=== PATIENT | male | born 1975 | race Asian ===

== ENCOUNTER 2018-10-01 09:19 | Inpatient (IN) | payer OTHER ==
[2018-10-01] MEDS ORDERED: ONDANSETRON 4 MG/2 ML VIAL IVP STA (09:41)
[2018-10-01] MEDS ORDERED: MORPHINE SULFATE 4 MG/ML SYRINGE IV STA (09:41)
[2018-10-01] MEDS ORDERED: SODIUM CHLORIDE 0.9% 1,000 ML IV STA ×2 (09:41)
[2018-10-01] MEDS ORDERED: PANTOPRAZOLE 40 MG/10 ML VIAL IVP STA (09:42)
--- NOTE | 2018-10-01 09:46 | ED ---
General Adult HPI - General Chief complaint: Nausea/Vomiting/Diarrhea Stated complaint: Vomiting blood Time Seen by Provider: 10/01/18 09:35 Source: patient, RN notes reviewed Mode of arrival: ambulatory Limitations: no limitations - History of Present Illness Initial comments: Patient's a 43-year-old male presented to the emergency room today with a chief complaint of abdominal pain with nausea vomiting diarrhea. Patient does admit that symptoms started 4 days ago with diarrhea. He states is having a proximally 5 episodes of diarrhea a day. Denies any signs of blood in the stool. Patient does admit to episodes of nausea vomiting started this morning. He states he did have 1 episode that look like there could be blood. He states he's vomited since is not seeing anything that looked like blood. Patient does admit to feeling fullness in his abdomen. He states he feels more distended. Patient currently rates pain 7/10. Does admit that the pain is cramping in nature and sharp. States it comes and goes. Patient denies any recent fever, chills, shortness of breath, chest pain, back pain, numbness or tingling, headaches or visual changes, or any other complaints. - Related Data Home Medications Medication Instructions Recorded Confirmed No Known Home Medications 10/01/18 10/01/18 Allergies Allergy/AdvReac Type Severity Reaction Status Date / Time No Known Allergies Allergy Verified 10/01/18 09:53 Review of Systems ROS Statement: Those systems with pertinent positive or pertinent negative responses have been documented in the HPI. ROS Other: All systems not noted in ROS Statement are negative. Past Medical History Past Medical History: No Reported History History of Any Multi-Drug Resistant Organisms: None Reported Additional Past Surgical History / Comment(s): Sleen Past Psychological History: No Psychological Hx Reported Smoking Status: Never smoker Past Alcohol Use History: None Reported Past Drug Use History: None Reported General Exam - General Exam Comments Initial Comments: General: The patient is awake and alert, in no distress, and does not appear acutely ill. Eye: There is normal conjunctiva bilaterally. No signs of icterus. Ears, nose, mouth and throat: There are moist mucous membranes and no oral lesions. Neck: The neck is supple, there is no tenderness or JVD. Cardiovascular: There is a regular rate and rhythm. No murmur, rub or gallop is appreciated. Respiratory: Lungs are clear to auscultation, respirations are non-labored, breath sounds are equal. No wheezes, stridor, rales, or rhonchi. Gastrointestinal: Abdomen soft on palpation. No specific tenderness. No rebound, guarding or CVA tenderness. Musculoskeletal: Normal ROM, no tenderness. Neurological: A&O x 3. CN II-XII intact, There are no obvious motor or sensory deficits. Coordination appears grossly intact. Speech is normal. Skin: Skin is warm and dry and no rashes or lesions are noted. Psychiatric: Cooperative, appropriate mood & affect, normal judgment. Limitations: no limitations Course Vital Signs 10/01/18 09:26 Temperature 97.5 F L Pulse Rate 89 Respiratory 22 Rate Blood Pressure 121/84 O2 Sat by Pulse 99 Oximetry Medical Decision Making - Medical Decision Making Patient reexamined and is resting comfortably. His labs been reviewed shows a 14,000 white count. Lactic acid is pending. Patient's CT the abdomen and pelvis does show evidence for a volvulus. Case was discussed by attending physician Dr. Gunn who did see the patient and discussed case with Dr. kraus. Doctor over the has been here in the emergency room to see the patient and discuss options with the patient. He is in agreement for barium enema. Patient will be admitted to Dr. kraus service. - Lab Data Result diagrams: 10/01/18 09:50 10/01/18 09:50 Lab Results 10/01/18 10/01/18 10/01/18 Range/Units 09:50 09:50 09:50 WBC 14.1 H (3.8-10.6) k/uL RBC 4.81 (4.30-5.90) m/uL Hgb 14.9 (13.0-17.5) gm/dL Hct 45.1 (39.0-53.0) % MCV 93.8 (80.0-100.0) fL MCH 31.0 (25.0-35.0) pg MCHC 33.1 (31.0-37.0) g/dL RDW 13.2 (11.5-15.5) % Plt Count 270 (150-450) k/uL Neutrophils % 89 % Lymphocytes % 6 % Monocytes % 4 % Eosinophils % 1 % Basophils % 0 % Neutrophils # 12.5 H (1.3-7.7) k/uL Lymphocytes # 0.8 L (1.0-4.8) k/uL Monocytes # 0.5 (0-1.0) k/uL Eosinophils # 0.1 (0-0.7) k/uL Basophils # 0.1 (0-0.2) k/uL PT 11.8 (9.0-12.0) sec INR 1.1 (<1.2) APTT 23.7 (22.0-30.0) sec Sodium 142 (137-145) mmol/L Potassium 3.8 (3.5-5.1) mmol/L Chloride 108 H (98-107) mmol/L Carbon Dioxide 27 (22-30) mmol/L Anion Gap 7 mmol/L BUN 21 H (9-20) mg/dL Creatinine 1.04 (0.66-1.25) mg/dL Est GFR (CKD-EPI)AfAm >90 (>60 ml/min/1.73 sqM) Est GFR (CKD-EPI)NonAf 89 (>60 ml/min/1.73 sqM) Glucose 103 H (74-99) mg/dL Calcium 9.2 (8.4-10.2) mg/dL Total Bilirubin 1.1 (0.2-1.3) mg/dL AST 33 (17-59) U/L ALT 34 (21-72) U/L Alkaline Phosphatase 51 (38-126) U/L Total Protein 6.8 (6.3-8.2) g/dL Albumin 4.1 (3.5-5.0) g/dL Amylase 62 (30-110) U/L Lipase 44 (23-300) U/L Disposition Clinical Impression: Volvulus Disposition: ADMITTED IP TO THIS HOSP Condition: Stable Is patient prescribed a controlled substance at d/c from ED?: No Referrals: None,Stated [Primary Care Provider] - 1-2 days Time of Disposition: 11:55
[2018-10-01 10:23] LABS: Basophils # (A) 0.1 k/uL (0-0.2); Basophils % (A) 0 %; Eosinophils # (A) 0.1 k/uL (0-0.7); Eosinophils % (A) 1 %; HCT 45.1 % (39.0-53.0); HGB 14.9 gm/dL (13.0-17.5); Lymphocytes # (A) 0.8 k/uL (1.0-4.8); Lymphocytes % (A) 6 %; MCHC 33.1 g/dL (31.0-37.0); MCV 93.8 fL (80.0-100.0); Mean Platelet Volume 6.5; Monocytes # (A) 0.5 k/uL (0-1.0); Monocytes % (A) 4 %; Neutrophils # (A) 12.5 k/uL (1.3-7.7); Neutrophils % (A) 89 %; Platelet Count 270 k/uL (150-450); RBC 4.81 m/uL (4.30-5.90); RDW 13.2 % (11.5-15.5); WBC 14.1 k/uL (3.8-10.6)
[2018-10-01 10:36] LABS: ALT 34 U/L (21-72); AST 33 U/L (17-59); Albumin 4.1 g/dL (3.5-5.0); Alkaline Phosphatase 51 U/L (38-126); Amylase 62 U/L (30-110); Anion Gap 7 mmol/L; Blood Urea Nitrogen 21 mg/dL (9-20); Calcium 9.2 mg/dL (8.4-10.2); Carbon Dioxide 27 mmol/L (22-30); Chloride 108 mmol/L (98-107); Glucose 103 mg/dL (74-99); INR 1.1 (<1.2); Lipase 44 U/L (23-300); Partial Thromboplastin Time 23.7 sec (22.0-30.0); Potassium 3.8 mmol/L (3.5-5.1); Prothrombin Time 11.8 sec (9.0-12.0); Sodium 142 mmol/L (137-145); Total Bilirubin 1.1 mg/dL (0.2-1.3); Total Protein 6.8 g/dL (6.3-8.2)
--- NOTE | 2018-10-01 11:04 | CT ---
EXAMINATION TYPE: CT abdomen pelvis w con DATE OF EXAM: 10/01/2018 COMPARISON: None HISTORY: Generalized pain with nausea, vomiting and diarrhea for [address] DLP: 646.8 mGycm CONTRAST: CT scan of the abdomen and pelvis is performed without Oral Contrast and with IV Contrast, patient in jected with 100 mL of Isovue 300. FINDINGS: LUNG BASES-: No visible nodule. No infiltrate. LIVER/GB: No calcified gallstones. No space occupying hepatic lesion. Biliary tree is of normal ca liber. PANCREAS: No inflammation. No distinct mass. SPLEEN: No splenic enlargement. No lesion seen. ADRENALS: No nodule. No thickening. KIDNEYS/BLADDER: No hydronephrosis. No nephrolithiasis. No distinct renal mass. Urinary bladder g rossly unremarkable. BOWEL: There is dilated large bowel extending from the low abdomen into the left upper quadrant with greatest transverse measurement of at least 12.5 cm. Axial image 55 and coronal image 45 demonstrated possible twisting of the mesentery. Sigmoid volvulus is difficult to exclude. Proximal colon however is not dilated at this time. There are also distended loops of small bowel. I do not see evidence of perforation at this time with free air. There is distention of the stomach and air is seen within th e esophagus. Normal appendix visualized. GENITAL ORGANS: No gross abnormality. LYMPH NODES: No greater than 1cm abdominal or pelvic lymph nodes are appreciated. AORTA: No significant abnormality. OSSEOUS STRUCTURES: No significant abnormality is seen. OTHER: Small amount of fluid is seen within the pelvis. IMPRESSION: 1. There is marked dilatation of the colon and in particularly transverse colon measuring up to 12.8 cm in greatest transverse dimension. There is a suggestion of twisting of the mesentery to the left o f midline mid abdomen which could reflect a volvulus and possibly a sigmoid volvulus. Right anna colo n however is not dilated at this time. No evidence for perforation at this time. Results called to ER physician at the time of the dictation.
[2018-10-01] MEDS ORDERED: MORPHINE SULFATE 4 MG/ML SYRINGE IV PRN (11:56)
[2018-10-01] MEDS ORDERED: NALOXONE 0.4 MG/ML 1 ML VIAL IV PRN ×2 (11:56→14:29)
--- NOTE | 2018-10-01 12:54 | P.GSHP ---
History of Present Illness H&P Date: 10/01/18 This is a 43-year-old male presents with a chief complaint of abdominal pain and distention. He's been having watery bowel movements for the past several days he is in town from [place]. He also had some nausea vomiting last night. Patient has not passed a bowel movement for the past 12 hours or had flatus at this time. 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 He denies any other medical or surgical history. Computed tomography scan showed suspected sigmoid volvulus. Past Medical History Past Medical History: No Reported History History of Any Multi-Drug Resistant Organisms: None Reported Additional Past Surgical History / Comment(s): Sleen Past Psychological History: No Psychological Hx Reported Smoking Status: Never smoker Past Alcohol Use History: None Reported Past Drug Use History: None Reported Medications and Allergies Home Medications Medication Instructions Recorded Confirmed Type No Known Home Medications 10/01/18 10/01/18 History Allergies Allergy/AdvReac Type Severity Reaction Status Date / Time No Known Allergies Allergy Verified 10/01/18 09:53 Surgical - Exam Osteopathic Statement: *. No significant issues noted on an osteopathic structural exam other than those noted in the History and Physical/Consult. Vital Signs Temp Pulse Resp BP Pulse Ox 97.5 F L 89 22 121/84 99 10/01/18 09:26 10/01/18 09:26 10/01/18 09:26 10/01/18 09:26 10/01/18 09:26 - General well developed, well nourished, no distress - Eyes PERRL - Respiratory normal expansion, normal respiratory effort - Cardiovascular Rhythm: regular - Abdomen Soft mild distention minimal tenderness to palpation - Neurologic normal coordination, normal sensation - Psychiatric oriented to time, oriented to person, oriented to place Results - Labs 10/01/18 09:50 10/01/18 09:50 Abnormal Lab Results - Last 24 Hours (Table) 10/01/18 10/01/18 Range/Units 09:50 09:50 WBC 14.1 H (3.8-10.6) k/uL Neutrophils # 12.5 H (1.3-7.7) k/uL Lymphocytes # 0.8 L (1.0-4.8) k/uL Chloride 108 H (98-107) mmol/L BUN 21 H (9-20) mg/dL Glucose 103 H (74-99) mg/dL Diabetes panel 10/01/18 Range/Units 09:50 Sodium 142 (137-145) mmol/L Potassium 3.8 (3.5-5.1) mmol/L Chloride 108 H (98-107) mmol/L Carbon Dioxide 27 (22-30) mmol/L BUN 21 H (9-20) mg/dL Creatinine 1.04 (0.66-1.25) mg/dL Glucose 103 H (74-99) mg/dL Calcium 9.2 (8.4-10.2) mg/dL AST 33 (17-59) U/L ALT 34 (21-72) U/L Alkaline Phosphatase 51 (38-126) U/L Total Protein 6.8 (6.3-8.2) g/dL Albumin 4.1 (3.5-5.0) g/dL Calcium panel 10/01/18 Range/Units 09:50 Calcium 9.2 (8.4-10.2) mg/dL Albumin 4.1 (3.5-5.0) g/dL Pituitary panel 10/01/18 Range/Units 09:50 Sodium 142 (137-145) mmol/L Potassium 3.8 (3.5-5.1) mmol/L Chloride 108 H (98-107) mmol/L Carbon Dioxide 27 (22-30) mmol/L BUN 21 H (9-20) mg/dL Creatinine 1.04 (0.66-1.25) mg/dL Glucose 103 H (74-99) mg/dL Calcium 9.2 (8.4-10.2) mg/dL Adrenal panel 10/01/18 Range/Units 09:50 Sodium 142 (137-145) mmol/L Potassium 3.8 (3.5-5.1) mmol/L Chloride 108 H (98-107) mmol/L Carbon Dioxide 27 (22-30) mmol/L BUN 21 H (9-20) mg/dL Creatinine 1.04 (0.66-1.25) mg/dL Glucose 103 H (74-99) mg/dL Calcium 9.2 (8.4-10.2) mg/dL Total Bilirubin 1.1 (0.2-1.3) mg/dL AST 33 (17-59) U/L ALT 34 (21-72) U/L Alkaline Phosphatase 51 (38-126) U/L Total Protein 6.8 (6.3-8.2) g/dL Albumin 4.1 (3.5-5.0) g/dL Assessment and Plan Assessment: Suspected sigmoid volvulus Plan: Given the findings on the computed tomography scan and the patient's history I discussed with him that he possibly has a sigmoid volvulus. He states over the last several hours he's noticed that his abdominal distention and pain is improved. He is from out of town he's from [place] he states he does not have surgery here if he can avoid it. I discussed with him obtaining a barium enema to rule out a complete volvulus. If there is no volvulus or obstruction the patient states that he wants to be discharged back directly to [place] where he can follow-up with a surgeon there. He states that he would go home today. If there is a volvulus seen on the enema that is not reducible the patient would require exploratory laparotomy possible bowel resection and possible ostomy he stated he understood this and agreed.
[2018-10-01] MEDS ORDERED: CEFUROXIME 750 MG in SODIUM CHLORIDE 0.9% 50 ML IVPB STA (13:32)
[2018-10-01] MEDS ORDERED: LACTATED RINGERS 1,000 ML IV ONE ×2 (14:00→16:41)
[2018-10-01] MEDS ORDERED: MEPERIDINE 50 MG/ML SYRINGE ONE (14:30)
[2018-10-01] MEDS ORDERED: fentaNYL (PF) 50 MCG/ML 2 ML AMP ONE (14:30)
[2018-10-01] MEDS ORDERED: LIDOCAINE 1% INJ 10MG/ML (20 ML MDV) ONE (14:30)
[2018-10-01] MEDS ORDERED: PHENYLEPHRINE-0.9% NACL SYG 1 MG/10 ML SYRINGE ONE (14:30)
[2018-10-01] MEDS ORDERED: ePHEDrine SULFATE/0.9% NACL/PF 50 MG/5 ML SYRINGE IV ONE (14:30)
[2018-10-01] MEDS ORDERED: GLYCOPYRROLATE 0.2 MG/ML 2 ML VIAL ONE (14:30)
[2018-10-01] MEDS ORDERED: PROPOFOL 10 MG/ML 20 ML VIAL IV ONE (14:30)
[2018-10-01] MEDS ORDERED: SUCCINYLCHOLINE CHLORIDE 100 MG/5 ML SYR IV ONE (14:30)
[2018-10-01] MEDS ORDERED: NEOSTIGMINE 1 MG/ML 10 ML VIAL ONE (14:30)
[2018-10-01] MEDS ORDERED: ROCURONIUM BROMIDE 10 MG/ML 10 ML VIAL IV ONE (14:30)
[2018-10-01] MEDS ORDERED: MIDAZOLAM 2 MG/2 ML VIAL ONE (14:30)
--- NOTE | 2018-10-01 14:33 | FL ---
EXAMINATION TYPE: FL barium enema DATE OF EXAM: 10/01/2018 CLINICAL HISTORY: Abdominal pain and distention. Abnormal CT. TECHNIQUE: A single contrast barium enema study is performed. 1,[address] Stewart.WI time 1:12 COMPARISON: None. FINDINGS: Isovue-370 was instilled in a retrograde manner with total used approximately 500 mL. At th e descending colonic/sigmoid colonic junction there is a beak sign then noted compatible with a volvu rekha. Contrast is noted to extend beyond the volvulus and into the ascending colon and transverse colo n. Examination was terminated at that point in time. IMPRESSION: 1. Partial obstructing volvulus at the descending colonic/sigmoid colonic junction.
--- NOTE | 2018-10-01 17:05 | P.OP ---
Date of Procedure: 10/01/18 Preoperative Diagnosis: Sigmoid Volvulus Postoperative Diagnosis: Same Procedure(s) Performed: Exploratory Laparotomy with sigmoid colectomy and end colostomy formation Anesthesia: DARLENE Surgeon: Sam Lockwood Estimated Blood Loss (ml): 10 Condition: stable Disposition: PACU Indications for Procedure: This is a 43-year-old male who presented to the hospital with a chief complaint of abdominal pain nausea vomiting he had had diarrhea for the last several days he has a history of a traumatic splenectomy. On computed tomography scan he was found to have a sigmoid volvulus this was confirmed with barium enema. Risks benefits and alternatives of exploratory laparotomy with possible bowel resection and possible colostomy were discussed the patient he stated he understood agreed and consented informed consent was obtained Description of Procedure: Patient was brought to the operative suite remained in the supine position underwent general endotracheal anesthesia per Department of anesthesia he was prepped and draped in the usual sterile fashion timeout was performed correct patient correct procedure correct site was verified. Midline incision was made carried down to the fascia which was incised and the abdomen was entered in the usual fashion. Immediately upon entering the abdomen there was markedly distended colon which was noted to be volvulized and twisted at the mesenteric base. The colon did not appear to be ischemic to the point of necrosis yet. At the distal portion a area of normal-appearing colon noninvolved in the volvulus was stapled across with a 75 mm blue load KVNG stapler. Attention was turned to the proximal end where a 75 mm blue load KVNG stapler was used to staple across healthy colon. Due to the patient's previous splenectomy the transverse colon and left colon were already mobilized. Using a LigaSure device the mesentery was resected hemostasis was noted and the specimen was passed off. The proximal end of the colon was still dilated and mismatched for the distal end. Decision was made for colostomy creation. Just to the left of the umbilicus and the rectus a 3 cm circular incision was made carried down the fascia which was incised 3 fingerbreadths were passed through the colon was passed through noted to not be twisted or ischemic. Attention was turned to the midline incision abdomen was copiously irrigated and suctioned and the fascia was closed with 2, 0 looped PDS sutures. Followed by skin nigel. The ostomy was then matured using 3-0 Vicryl sutures. Patient tolerated the procedure well no apparent complications
[2018-10-01 19:20] VITALS: BMI 22.2
[2018-10-01] MEDS ORDERED: MORPHINE SULFATE 4 MG/ML SYRINGE IVP PRN (19:24)
[2018-10-01] MEDS: HEPARIN SODIUM,PORCINE 5,000 UNIT/ML 1 ML VIAL SQ SCH (23:50)
--- NOTE | 2018-10-02 08:11 | XR ---
EXAMINATION TYPE: XR abdomen 1V , ONE VIEW DATE OF EXAM ORDERED: 10/02/2018 HISTORY: NG TUBE PLACEMENT. COMPARISON: Previous fluoroscopic examination dated 10/01/2018. FINDINGS: An NG tube is present and its tip is in stomach. There is contrast in the distal small bow el secondary to a previous contrast examination. The lung bases are clear. IMPRESSION: INTERVAL PLACEMENT OF AN NG TUBE WITH ITS TIP WITHIN THE STOMACH.
[2018-10-02] MEDS: HEPARIN SODIUM,PORCINE 5,000 UNIT/ML 1 ML VIAL SQ SCH ×2 (08:25→16:02)
[2018-10-02 09:52] LABS: Basophils % (A) 0 %; Eosinophils # (A) 0.1 k/uL (0-0.7); Eosinophils % (A) 1 %; HCT 42.6 % (39.0-53.0); HGB 13.9 gm/dL (13.0-17.5); Lymphocytes # (A) 1.5 k/uL (1.0-4.8); Lymphocytes % (A) 16 %; MCH 30.4 pg (25.0-35.0); MCHC 32.6 g/dL (31.0-37.0); MCV 93.3 fL (80.0-100.0); Mean Platelet Volume 5.8; Monocytes # (A) 0.6 k/uL (0-1.0); Monocytes % (A) 6 %; Neutrophils # (A) 7.4 k/uL (1.3-7.7); Neutrophils % (A) 76 %; Platelet Count 255 k/uL (150-450); RBC 4.57 m/uL (4.30-5.90); RDW 13.2 % (11.5-15.5); WBC 9.8 k/uL (3.8-10.6)
[2018-10-02 10:02] LABS: Anion Gap 4 mmol/L; Blood Urea Nitrogen 13 mg/dL (9-20); Calcium 8.5 mg/dL (8.4-10.2); Carbon Dioxide 30 mmol/L (22-30); Chloride 106 mmol/L (98-107); Glucose 90 mg/dL (74-99); Potassium 3.8 mmol/L (3.5-5.1); Sodium 140 mmol/L (137-145)
--- NOTE | 2018-10-02 12:00 | P.PN ---
Subjective Progress Note Date: 10/02/18 Patient is doing well today, gas and liquid stool in bag. No complaints. Pain is well controlled with epidural Objective - Vital Signs Vital signs: Vital Signs Temp 99.9 F H 10/02/18 07:00 Pulse 85 10/02/18 07:00 Resp 16 10/02/18 07:00 BP 127/67 10/02/18 07:00 Pulse Ox 95 10/02/18 07:00 Intake & Output 10/01/18 10/02/18 10/02/18 18:59 06:59 18:59 Intake Total 1250 1600 Output Total 200 850 Balance 1050 750 Weight 70.307 kg 70.307 kg Intake: IV 1250 Intake, IV Titration 1600 Amount Sodium Chloride 0.9% 1, 1600 000 ml @ 100 mls/hr IV . Q10H STA Rx#:[id number] Output: Urine 100 850 Estimated Blood Loss 100 Other: Voiding Method Indwelling Catheter Indwelling Catheter - Constitutional General appearance: Present: cooperative - Respiratory Details: Nonlabored - Cardiovascular Rhythm: regular - Gastrointestinal Gastrointestinal Comment(s): Soft, expected TTP, incision CDI, ostomy pink and patent. Gas and liquid stool in bag - Psychiatric Psychiatric: Present: A&O x's 3 - Labs CBC & Chem 7: 10/02/18 09:40 10/02/18 09:40 Assessment and Plan Assessment: POD#1 ex lap sigmoid resection with end colostomy secondary to sigmoid vovulus Plan: Patient is doing very well. Pain well controlled on epidural, NGT DCed today, cont garcia secondary to epidural. Ambulate with assistance, clear liquid diet as tolerated.
[2018-10-02] MEDS: ROPIVACAINE 250 MG, HYDROMORPHONE (PF) 5 MG in SODIUM CHLORIDE 0.9% 200 ML EPIDURAL PRN (12:41)
[2018-10-03] MEDS: HEPARIN SODIUM,PORCINE 5,000 UNIT/ML 1 ML VIAL SQ SCH ×4 (00:34→22:34)
[2018-10-03] MEDS ORDERED: diphenhydrAMINE 50 MG/ML 1 ML VIAL IM PRN (01:25)
[2018-10-03] MEDS ORDERED: diphenhydrAMINE 50 MG/ML 1 ML VIAL IVP PRN (01:47)
[2018-10-03 08:26] LABS: Basophils % (A) 0 %; Eosinophils # (A) 0.1 k/uL (0-0.7); Eosinophils % (A) 1 %; HCT 42.5 % (39.0-53.0); HGB 13.4 gm/dL (13.0-17.5); Lymphocytes # (A) 1.7 k/uL (1.0-4.8); Lymphocytes % (A) 15 %; MCH 29.3 pg (25.0-35.0); MCHC 31.6 g/dL (31.0-37.0); Monocytes # (A) 0.6 k/uL (0-1.0); Monocytes % (A) 5 %; Neutrophils # (A) 8.9 k/uL (1.3-7.7); Neutrophils % (A) 78 %; Platelet Count 223 k/uL (150-450); RBC 4.57 m/uL (4.30-5.90); RDW 12.9 % (11.5-15.5); WBC 11.4 k/uL (3.8-10.6)
[2018-10-03 08:37] LABS: Anion Gap 5 mmol/L; Blood Urea Nitrogen 12 mg/dL (9-20); Calcium 8.6 mg/dL (8.4-10.2); Carbon Dioxide 33 mmol/L (22-30); Chloride 99 mmol/L (98-107); Glucose 103 mg/dL (74-99); Potassium 3.8 mmol/L (3.5-5.1); Sodium 137 mmol/L (137-145)
[2018-10-03] MEDS: ONDANSETRON 4 MG/2 ML VIAL IVP PRN (13:20)
--- NOTE | 2018-10-03 13:20 | P.PN ---
Subjective Progress Note Date: 10/03/18 Patient is doing well today, gas in bag no significant stool. No complaints. Pain is well controlled with epidural, he has been OOB to chair Objective - Vital Signs Vital signs: Vital Signs Temp 98.6 F 10/03/18 07:00 Pulse 80 10/03/18 07:00 Resp 16 10/03/18 07:00 BP 120/86 10/03/18 07:00 Pulse Ox 93 L 10/03/18 07:00 Intake & Output 10/02/18 10/03/18 10/03/18 18:59 06:59 18:59 Intake Total 1040 832 Output Total 1550 950 Balance -510 -118 Intake: Intake, IV Titration 800 832 Amount Lactated Ringers 1,000 ml 800 @ 0 mls/hr IV .[facility] Rx#:[id number] Ropivacaine 250 mg 32 Hydromorphone (Pf) 5 mg In Sodium Chloride 0.9% 200 ml @ Per Protocol EPIDURAL .Q0M PRN Rx#: [id number] Sodium Chloride 0.9% 1, 800 000 ml @ 100 mls/hr IV . Q10H STA Rx#:[id number] Oral 240 Output: Drainage 50 Left Abdomen 50 Urine 1500 900 Stool 50 Other: Voiding Method Indwelling Catheter Indwelling Catheter Indwelling Catheter - Constitutional General appearance: Present: cooperative - Respiratory Details: nonlabored - Cardiovascular Rhythm: regular - Gastrointestinal Gastrointestinal Comment(s): S/ND/ostomy pink and patent, gas and sweat in bag - Psychiatric Psychiatric: Present: A&O x's 3 - Labs CBC & Chem 7: 10/03/18 07:18 10/03/18 07:18 Labs: Abnormal Lab Results - Last 24 Hours (Table) 10/03/18 10/03/18 Range/Units 07:18 07:18 WBC 11.4 H (3.8-10.6) k/uL Neutrophils # 8.9 H (1.3-7.7) k/uL Carbon Dioxide 33 H (22-30) mmol/L Glucose 103 H (74-99) mg/dL Assessment and Plan Assessment: POD#2 ex lap sigmoid resection with end colostomy secondary to sigmoid vovulus Plan: Patient is doing very well. wean epidural today. Cont. garcia secondary to epidural. Ambulate with assistance, clear liquid diet as tolerated.
[2018-10-03] MEDS ORDERED: METOCLOPRAMIDE 5 MG/ML 2 ML VIAL IVP STA (14:45)
--- NOTE | 2018-10-03 18:07 | P.PN ---
Progress Note - Text 10/02 1717 43 yr old male s/p exp lap by Dr Lockwood. pt has an epidural cath for post op pain control with the solution running at 8 cc/hr.pt has a vas of 1,with no motor and sensory deficit.patient doing well.
[2018-10-04] MEDS: ROPIVACAINE 250 MG, HYDROMORPHONE (PF) 5 MG in SODIUM CHLORIDE 0.9% 200 ML EPIDURAL PRN (01:22)
[2018-10-04] MEDS: ONDANSETRON 4 MG/2 ML VIAL IVP PRN (04:06)
--- NOTE | 2018-10-04 07:14 | P.PN ---
Progress Note - Text 10/04 705am 43-year-old male status post exploratory lap by Dr. kraus. Patient has an epidural catheter for postop pain control with the solution running at 4 mL an hour. Patient has a VAS of 2 with no motor or sensory deficit ambulating well. Plan to DC epidural nurse informed
[2018-10-04] MEDS: HEPARIN SODIUM,PORCINE 5,000 UNIT/ML 1 ML VIAL SQ SCH ×3 (09:03→23:52)
[2018-10-04 09:39] LABS: Basophils % (A) 0 %; Eosinophils # (A) 0.1 k/uL (0-0.7); Eosinophils % (A) 1 %; HCT 43.7 % (39.0-53.0); HGB 14.7 gm/dL (13.0-17.5); Lymphocytes # (A) 0.6 k/uL (1.0-4.8); Lymphocytes % (A) 12 %; MCH 31.2 pg (25.0-35.0); MCHC 33.7 g/dL (31.0-37.0); MCV 92.6 fL (80.0-100.0); Mean Platelet Volume 6.7; Monocytes # (A) 0.5 k/uL (0-1.0); Monocytes % (A) 8 %; Neutrophils # (A) 4.2 k/uL (1.3-7.7); Neutrophils % (A) 77 %; Platelet Count 229 k/uL (150-450); RBC 4.71 m/uL (4.30-5.90); RDW 13.1 % (11.5-15.5); WBC 5.4 k/uL (3.8-10.6)
[2018-10-04 09:44] LABS: Anion Gap 4 mmol/L; Blood Urea Nitrogen 20 mg/dL (9-20); Calcium 8.8 mg/dL (8.4-10.2); Carbon Dioxide 33 mmol/L (22-30); Chloride 101 mmol/L (98-107); Glucose 120 mg/dL (74-99); Sodium 138 mmol/L (137-145)
--- NOTE | 2018-10-04 10:43 | P.PN ---
Subjective Progress Note Date: 10/04/18 patient is feeling much better today. He had stool output from his ostomy last night. The ostomy nurses and to see him today. Objective - Vital Signs Vital signs: Vital Signs Temp 99.2 F 10/03/18 22:00 Pulse 90 10/04/18 00:00 Resp 16 10/04/18 00:00 BP 115/73 10/03/18 22:00 Pulse Ox 94 L 10/04/18 08:05 Intake & Output 10/03/18 10/04/18 10/04/18 18:59 06:59 18:59 Intake Total 250 Output Total 900 1500 Balance -900 -1250 Intake: Intake, IV Titration 250 Amount Ropivacaine 250 mg 250 Hydromorphone (Pf) 5 mg In Sodium Chloride 0.9% 200 ml @ Per Protocol EPIDURAL .Q0M PRN Rx#: [id number] Output: Drainage 1450 Left Abdomen 1450 Urine 900 Stool 50 Other: Voiding Method Indwelling Catheter Indwelling Catheter - Constitutional General appearance: Present: cooperative - Respiratory Details: nonlabored - Cardiovascular Rhythm: regular - Gastrointestinal Gastrointestinal Comment(s): soft nontender nondistended incision is clean dry and intact ostomy is pink and patent mild edema - Psychiatric Psychiatric: Present: A&O x's 3 - Labs CBC & Chem 7: 10/04/18 08:33 10/04/18 08:33 Labs: Abnormal Lab Results - Last 24 Hours (Table) 10/04/18 10/04/18 Range/Units 08:33 08:33 Lymphocytes # 0.6 L (1.0-4.8) k/uL Carbon Dioxide 33 H (22-30) mmol/L Glucose 120 H (74-99) mg/dL Assessment and Plan Assessment: POD#3 ex lap sigmoid resection with end colostomy secondary to sigmoid vovulus Plan: patient is feeling much better today. He'll be started on a diet and advanced as tolerated to soft. He is sitting ostomy nurse at this time and will be set up for another supplies to return to [place] with. Once he is tolerating a diet and his pain is well-controlled and he continues to have output from his ostomy he may be discharged back to [place]. He is instructed to immediately follow up with a surgeon there and his primary care. I also instructed him to stop the car every couple of hours on his drive home and ambulate. He understood this and agreed.
[2018-10-05 08:06] VITALS: BP 105/69; PULSE 76; RESP 17; TEMP 97.9
[2018-10-05] MEDS: HEPARIN SODIUM,PORCINE 5,000 UNIT/ML 1 ML VIAL SQ SCH (08:08)
[2018-10-05 08:55] LABS: Basophils % (A) 1 %; Eosinophils # (A) 0.3 k/uL (0-0.7); Eosinophils % (A) 6 %; HCT 42.7 % (39.0-53.0); HGB 13.9 gm/dL (13.0-17.5); Lymphocytes # (A) 1.1 k/uL (1.0-4.8); Lymphocytes % (A) 20 %; MCH 30.4 pg (25.0-35.0); MCHC 32.6 g/dL (31.0-37.0); MCV 93.3 fL (80.0-100.0); Mean Platelet Volume 6.6; Monocytes # (A) 0.5 k/uL (0-1.0); Monocytes % (A) 8 %; Neutrophils # (A) 3.4 k/uL (1.3-7.7); Neutrophils % (A) 62 %; Platelet Count 269 k/uL (150-450); RBC 4.58 m/uL (4.30-5.90); RDW 12.8 % (11.5-15.5); WBC 5.6 k/uL (3.8-10.6)
[2018-10-05 09:08] LABS: Anion Gap 7 mmol/L; Blood Urea Nitrogen 17 mg/dL (9-20); Calcium 8.7 mg/dL (8.4-10.2); Carbon Dioxide 26 mmol/L (22-30); Chloride 107 mmol/L (98-107); Glucose 104 mg/dL (74-99); Potassium 3.9 mmol/L (3.5-5.1); Sodium 140 mmol/L (137-145)
--- NOTE | 2018-10-05 14:08 | P.PN ---
Subjective Progress Note Date: 10/05/18 Principal diagnosis: Status post laparotomy for sigmoid volvulus The patient is doing well. He is taking some regular soft foods then. No nausea or vomiting. His ostomy has been working well. He is comfortable with changing the appliance. Mild pain. He is anxious to go home. Objective - Vital Signs Vital signs: Vital Signs Temp 97.9 F 10/05/18 07:00 Pulse 76 10/05/18 07:00 Resp 17 10/05/18 08:00 BP 105/69 10/05/18 07:00 Pulse Ox 94 L 10/05/18 07:00 Intake & Output 10/04/18 10/05/18 10/05/18 18:59 06:59 18:59 Intake Total 1300 Output Total 1350 250 Balance -1350 1050 Intake: Intake, IV Titration 1300 Amount Lactated Ringers 1,000 ml 1300 @ 0 mls/hr IV .[facility] Rx#:[id number] Output: Urine 350 Stool 1000 250 Other: Voiding Method Toilet Toilet # Voids 2 - Constitutional General appearance: Present: cooperative, no acute distress - Respiratory Respiratory: bilateral: CTA - Cardiovascular Rhythm: regular - Gastrointestinal General gastrointestinal: Present: normal bowel sounds, soft Localized gastrointestinal: surgical scar: diffuse (The incision is healing well. The ostomy is pink and viable.) - Labs CBC & Chem 7: 10/05/18 08:01 10/05/18 08:01 Labs: Abnormal Lab Results - Last 24 Hours (Table) 10/05/18 Range/Units 08:01 Glucose 104 H (74-99) mg/dL Assessment and Plan (1) S/P colostomy Current Visit: Yes Status: Acute Code(s): Z93.3 - COLOSTOMY STATUS SNOMED Code(s): 539565224 (2) Volvulus Current Visit: Yes Status: Acute Code(s): K56.2 - VOLVULUS SNOMED Code(s) : 8694337 Plan: The patient's progressing well. He is comfortable with caring for his ostomy. I think he stable to be discharged home. He can follow-up with his primary care physician on arrival back home. He can see a surgeon for follow-up staple removal in 1 week. He is instructed to follow a soft, low residue diet for 1-2 weeks. We discussed the usual ostomy care and issues that can come up with a fresh colostomy. Questions were encouraged and answered. He is instructed to make sure he is doing calf Exercises while traveling in the car and stopping frequently to decrease the chance of a DVT. He is instructed to either call the office or go to the emergency room if he develops fevers, chills, nausea or vomiting, wound complications.
--- NOTE | 2018-10-07 07:48 | P.DS ---
Providers Date of admission: 10/01/18 11:56 Attending physician: Sam Lockwood DO Consults: 10/01/18 13:31 Consult Physician Routine Consulting Provider: [facility] Consult Reason/Comments: [facility] Do you want consulting provider notified?: Yes Primary care physician: Stated None Hospital Course: Is a 43-year-old patient who is in from out of town for her his kids hockey tournament he states that he began having acute abdominal pain and retching. He is not passing any bowel movements and was found at sigmoid volvulus. This was not reducible with barium enema. He underwent exploratory laparotomy with sigmoid colon resection and end colostomy. Postoperatively the patient did well with no complications. He began having output out of his ostomy postop day 2 and subsequently tolerated a soft diet. He was discharged home in stable condition with instructions to follow-up with the surgeon in [place] and a primary care and [place] as soon as he arrived. He was also instructed to stop the car regularly and do Exercises and walk around to prevent DVT. His was driving. He understood this and was comfortable with these instructions. Patient was discharged in stable condition Patient Condition at Discharge: Stable Plan - Discharge Summary Discharge Rx Participant: Yes New Discharge Prescriptions: New HYDROcodone/APAP 5-325MG [[place] 5-325] 1 tab PO Q4HR PRN 3 Days #18 tab PRN Reason: Pain Discharge Medication List HYDROcodone/APAP 5-325MG [[place] 5-325] 1 tab PO Q4HR PRN 3 Days #18 tab [Rx] Follow up Appointment(s)/Referral(s): None,Stated [Primary Care Provider] - 1-2 days Patient Instructions/Handouts: Hydrocodone/Acetaminophen (By mouth), Colostomy Care (GEN), Low Fiber Diet (GEN), Colectomy (GEN) Activity/Diet/Wound Care/Special Instructions: Dr. Jean Claude Abdi - 10/12/18 10:00 a.m. - [phone] - Please have Dr. Abdi set up home care services to maintain ostomy supplies. [facility] takes [employer] [facility] insurance - [phone] Abdominal Incision Care as follows: Colostomy Care Recommendations: Last pouching system change: 10.04.2018 Mr Hyman is to empty the pouching system (bag) when it is 1/2 to 1/3 full by sitting on the toilet or facing the toilet Remember to place toilet paper in the bottom of the bowl to eliminate possible splash. Do not use baby wipes to clean the pouching tail of the bag. Mr Hyman is to change the drainable pouching system every 3-5 days in the morning if possible until transitioned to a disposable pouching system. Diet recommendations as per the surgeon and the physician office rep (refer to the written materials provided) You will be receiving the following supplies for your ostomy care form the hospital on the day of discharge: [facility] one piece cut to fit pouching system #[id number] (three from the hospital) No sting prep pads (12) Ostomy Powder Mr Hyman will be receiving osotmy samples for care from [facility] and [place] to his home in 3-6 days post discharge Home Health RN please assist Mr Hyman to arrange for Durable Medical Supplies for eventually disposable pouches in 3 weeks after discharge. DIET: avoid fresh fruits and vegetables for 2 weeks. Avoid fatty foods. Discharge Disposition: HOME SELF-CARE
== END 2018-10-05 13:29 | disposition home or self-care (01) | DRG 330 ==
LOC: EC 09:19 → 4SSUR 11:56
PROVIDERS: ADMIT Student in an Organized Health Care Education/Training Program; ATTEND Student in an Organized Health Care Education/Training Program
PROC: 0DTN0ZZ Resection of Sigmoid Colon, Open Approach (ICD-10-PCS; 2018-10-01)
PROC: 0D1N0Z4 Bypass Sigmoid Colon to Cutaneous, Open Approach (ICD-10-PCS; principal; 2018-10-01 13:31)
DX: K56.2 Volvulus (principal); K92.0 Hematemesis; Z90.81 Acquired absence of spleen
CPT/HCPCS: 36415; 74018; 74177; 74270; 80048; 80053; 82150; 83605; 83690; 85025; 85610; 85730; 88307; 94760; 96361; 96374; 96375; 99285